=== PATIENT | male | born 1990 | race African-American/Black ===

== ENCOUNTER 2022-07-12 07:28 | Emergency (ER) | payer OTHER ==
[~2022-07-12] VITALS: Ht 182.9 cm; Wt 82.0 kg
[2022-07-12 08:50] VITALS: BP 139/94
[2022-07-12 08:55] LABS: BASOPHILS % 0.5 % (0.0-2.0); EOSINOPHILS % 0.1 % (0.0-5.0); HEMATOCRIT. 48.1 % (42.0-52.0); HEMOGLOBIN. 16.4 g/dL (14.0-18.0); LYMPHOCYTES % 20.2 % (20.0-50.0); MEAN CORPUSCULAR HEMOGLOBIN 27.9 pg (28.0-32.0); MEAN CORPUSCULAR VOLUME 82.1 fL (80.0-94.0); MEAN PLATELET VOLUME 9.3 fl (7.4-10.4); NEUTROPHILS % 69.2 % (40.0-76.0); PLATELET 249 x1000/uL (130-400); RED BLOOD CELL COUNT 5.87 mill/uL (4.7-6.1); RED CELL DISTRIBUTION WIDTH 14.2 % (11.6-14.6)
[2022-07-12 09:01] LABS: CHLORIDE 104 mEq/L (98-107)
[2022-07-12 09:09] LABS: ETHANOL BLOOD < 10 mg/dL
== END 2022-07-12 12:29 | disposition home or self-care (01) ==
LOC: ER 07:28 → EDBD 07:28 → CANBEDREQ 09:30 → ER 12:29
DX: G93.40 Encephalopathy, unspecified (principal); R06.02 Shortness of breath; Z20.822 Contact with and (suspected) exposure to COVID-19; Z78.1 Physical restraint status
CPT/HCPCS: 36415; 71045; 80053; 80320; 85025; 87426; 99285; C9803; G0480